=== PATIENT | female | born 1985 | race Caucasian/White ===

== ENCOUNTER → 2016-11-12 | Outpatient (CLI) | payer OTHER ==
--- NOTE | 2016-11-14 13:35 | REP ---
Clinical: Irregular menstrual cycles. Technique: Transabdominal pelvic ultrasound followed by transvaginal examination for better evaluation of the endometrium and adnexa with color Doppler evaluation of the ovaries. Findings: Bladder is unremarkable and measures 14.9 x 8.38 x 13.0 cm. Normal anteverted uterus measures 9.4 x 1.9 x 4.4 cm. The endometrial complex measures 6.3 mm thickness. Subcentimeter Nabothian cyst identified along with minimal cervical fluid which is nonspecific. The ovaries are essentially normal in appearance and vascularity with multiple peripheral follicles noted bilaterally. Right ovary measures 4.0 x 1.6 x 3.5 cm; RI equal 0.41. Left ovary measures 4.1 x 2.5 x 1.9 cm; RI equal 0.48. No pelvic fluid or adnexal mass lesion. Impression: 1. Small amount of endocervical fluid is nonspecific but may warrant correlation with physical examination and an logical consultation. 2. Otherwise normal appearance to the uterus and ovaries and without evidence for ovarian torsion. Signed by Ayo Jean MD 11/14/2016 01:27 P
== END ==
LOC: M LRY 08:16
PROVIDERS: ATTEND Nurse Practitioner Family
DX: R10.2 Pelvic and perineal pain (principal)

== ENCOUNTER → 2017-06-10 | Outpatient (CLI) | payer OTHER ==
--- NOTE | 2017-06-13 07:20 | REP ---
Left foot four views : There is no fracture or dislocation. Mineralization and joint spaces are normal. There are no calcifications or foreign bodies. Impression: Negative left foot . Signed by Chetan Rivera MD 06/10/2017 10:57 A
== END ==
LOC: M LRY 09:51
PROVIDERS: ATTEND Nurse Practitioner Family
DX: M79.672 Pain in left foot (principal)

== ENCOUNTER → 2017-08-04 | Outpatient (CLI) | payer OTHER ==
[2017-08-04 12:58] LABS: BASO % 0.3 % (0.0-1.0); EOS % 0.3 % (0.0-3.0); HEMATOCRIT 38.9 % (36.0-47.0); HEMOGLOBIN 12.9 g/dl (12.0-16.0); IMMATURE GRANULOCYTE % 0.3 % (0-3.0); LYMPH # 2.4 10^3/uL (1.5-4.5); MEAN CORPUSCULAR HEMOGLOBIN 29.8 pg (27.0-33.0); MEAN CORPUSCULAR HGB CONC 33.2 g/dl (32.0-36.5); MEAN CORPUSCULAR VOLUME 89.8 fl (80.0-96.0); MONO # 0.4 10^3/uL (0.0-0.8); MONO % 6.1 % (0.0-5.0); NEUTROPHILS # 4.2 10^3/uL (1.8-7.7); PLATELET COUNT, AUTOMATED 212 10^3/uL (150-450); RED BLOOD COUNT 4.33 10^6/uL (4.00-5.40); RED CELL DISTRIBUTION WIDTH 12.3 % (11.5-14.5); WHITE BLOOD COUNT 7.1 10^3/uL (4.0-10.0)
[2017-08-04 14:32] LABS: CHLAMYDIA DNA AMPLIFICATION NEGATIVE (NEGATIVE); GC DNA AMPLIFICATION NEGATIVE (NEGATIVE)
[2017-08-05 10:27] LABS: RUBELLA IgG QUALITATIVE IMMUNE (IMMUNE)
[2017-08-05 10:40] LABS: HBsAg Prenatal NEGATIVE (NEGATIVE)
[2017-08-05 10:56] LABS: HEPATITIS C VIRUS ABY INDEX < 0.0 INDEX (<0.8)
[2017-08-05 10:58] LABS: HIV 1&2 SCREEN CENTAUR NEGATIVE (NEGATIVE)
== END ==
LOC: M LRY 09:35
DX: Z34.81 Encounter for supervision of other normal pregnancy, first trimester (principal); Z3A.09 9 weeks gestation of pregnancy
CPT/HCPCS: 86762